=== PATIENT | male | born 1935 | race Caucasian/White ===

== ENCOUNTER 2016-07-09 18:03 | Inpatient (IN) | payer MEDICARE, OTHER ==
[~2016-07-09] VITALS: Ht 185.4 cm; Wt 71.6 kg
[~2016-07-09 18:03] MED LIST: ATOR40TA69 PO; CHOL200025 PO; FLUT16SP NASAL; IPRA3AMP NEB; IPRA4AER INHALATION; LEVO500T79 PO; LEVO750T39 PO; LISI-610 PO; MULT1CAP33 PO; NORT25CA PO; POLY17PO2 PO; PRED-508 PO; WARF5TAB7 PO
[2016-07-09 18:14] VITALS: BP 136/82; RESP 16; O2SAT 95
--- NOTE | 2016-07-09 19:35 | DRSVH ---
PROCEDURE: X-RAY CHEST, TWO VIEWS ([id number]) INDICATIONS: persistent cough TECHNIQUE: 2 views of the chest were acquired. COMPARISON: [facility], CR, XR CHEST 2VW, 08/01/2015, 8:57. FINDINGS: Surgical changes and devices: Surgical clips are projected over the left upper quadrant. Lungs and pleura: There is elevation of the right hemidiaphragm, unchanged from the study dated . As before, there is likely atelectasis at the right lung base. No acute airspace opacities. Mediastinum: Mediastinal contours are normal. Heart size is enlarged, as before. The aortic arch is calcified. Bones and chest wall: No suspicious bony abnormalities. Soft tissues appear unremarkable. IMPRESSION: 1. Unchanged elevation of the right hemidiaphragm with probable right basilar atelectasis. 2. Stable cardiomegaly. 3. No definite acute airspace opacities; however this is a limited study given diaphragmatic elevatio n and cardiomegaly. Dictated by: Sadia Deleon M.D. on 07/09/2016 at 19:31 Approved by: Sadia Deleon M.D. on 07/09/2016 at 19:33
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
[2016-07-09] MEDS ORDERED: cefTRIAXone Inj 2,000 MG in Dextrose 5% Minibag Plus 50 ML IV ONE (20:15)
[2016-07-09 20:45] LABS: BASOPHILS % (AUTO) 0.2 % (0-3); EOSINOPHILS % (AUTO) 0.1 % (0-5); MONOCYTES % (AUTO) 15.5 % (4-12); Mean Corpuscular Hemoglobin 30.9 pg (27.0-35.0); Mean Corpuscular Volume 94.3 fL (81-100); NEUTROPHILS % (AUTO) 75.9 % (40-74); Platelet Count 195 bil/L (150-400)
[2016-07-09] MEDS ORDERED: Albuterol-Ipratropium 3 mL Inhalation Solution NEB ONE ×2 (21:00→21:35)
[2016-07-09] MEDS ORDERED: MethylprednisoLONE Sodium Succinate 62.5 mg/mL 2 mL Inj IVPUSH ONE (21:00)
[2016-07-09 21:49] LABS: INR 1.61 ratio
--- NOTE | 2016-07-09 22:08 | DRSVH ---
PROCEDURE: CT BRAIN WITHOUT CONTRAST ([id number]) INDICATIONS: headache, left ear pain, warfarin use TECHNIQUE: Noncontrast 4.5 mm thick angled axial sections acquired from the foramen magnum to the vertex, with c oronal reformats. COMPARISON: [facility], CT, BRAIN W/O CONTRAST, 06/15/2014, 12:03. FINDINGS: Image quality: Excellent. CSF spaces: Basal cisterns are patent. No extra-axial fluid collections. The ventricles are symmet corine in size and shape. Brain: No intracranial bleeds or masses. There is cerebral volume loss for age, with resultant vent ricular and sulcal prominence. There are periventricular and deep white matter chronic small vessel ischemic changes. A chronic appearing lacunar infarct is present within the right thalamus which is n ew when compared with the study dated 06/15/14. There is intracranial internal carotid artery atherosc lerosis. Skull and face: Calvarium and visualized facial bones appear intact, without suspicious lesions. Sinuses: Visualized sinuses and mastoids are clear. IMPRESSION: 1. No acute intracranial findings. 2. Chronic findings likely associated with microvascular ischemia and right thalamic lacunar infarct, new from 2014, but likely chronic in nature. Dictated by: Sadia Deleon M.D. on 07/09/2016 at 22:04 Approved by: Sadia Deleon M.D. on 07/09/2016 at 22:06
[2016-07-09 22:11] VITALS: PULSE 88; RESP 20; O2SAT 85
[2016-07-09] MEDS ORDERED: Ondansetron 2 mg/mL 2 mL Inj IVPUSH PRN (22:30)
[2016-07-09] MEDS ORDERED: Alum-Mag Hydrox-Simeth 30 mL Suspension PO PRN (22:30)
[2016-07-09] MEDS ORDERED: Polyethylene Glycol (PEG) 17 Gm Powder PO PRN (22:30)
[2016-07-09 23:05] VITALS: BP 133/68; PULSE 101; RESP 32; O2SAT 92
[2016-07-09] MEDS: Budesonide 0.5 mg/2 mL Inhalation Solution NEB SCH (23:10)
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
[2016-07-09 23:30] VITALS: BP 94/65; PULSE 103; RESP 24; O2SAT 91
[2016-07-09 23:34] VITALS: PULSE 102
[2016-07-09 23:48] VITALS: BP 94/65; PULSE 102; RESP 24; O2SAT 91
[2016-07-10] VITALS (10 sets, daily range): BP systolic 120–130; BP diastolic 62–80; PULSE 61–104; RESP 16–24; O2SAT 89–97
[2016-07-10] MEDS ORDERED: 0.9% Sodium Chloride 1,000 ML IV ONE
--- NOTE | 2016-07-10 00:04 | NUR ---
Admit Pt to floor at 2320. Alert and oriented. Ambulated from stretcher to bathroom and then to bed. Urine sent. Sats are 95% on 2 liters. He states he is on 2 liters of oxygen at home. Denies pain and states he is comfortable. States he received flu shot this season. Can't remember names of meds other than Coumadin. States he fills these at [facility] - will check with them in the morning. Discussed plan of care. No questions for me at this time.
[2016-07-10] MEDS ORDERED: Piper-Tazo 3.375 Gm/50 mL D5W Minibag Plus - Q8H over 4 hrs IV ONE ×2 (00:30)
[2016-07-10] MEDS ORDERED: Heparin 5,000 Unit/mL Inj SUBQ SCH (00:30)
[2016-07-10] MEDS ORDERED: Linezolid Inj 600 MG in IV Premix 1 EACH IV SCH (00:30)
[2016-07-10] MEDS: 0.9% Sodium Chloride 1,000 ML IV SCH ×3 (00:32→20:19)
[2016-07-10 01:26] LABS: APPEARANCE,URINE CLEAR (CLEAR,HAZY); COLOR,URINE YELLOW (YELLOW); OCCULT BLOOD,URINE TRACE (NEGATIVE); PH,URINE 5.5 (5.0-8.0); UROBILINOGEN,URINE NORMAL (NORMAL)
[2016-07-10] MEDS: Albuterol-Ipratropium 3 mL Inhalation Solution NEB SCH ×4 (01:52→21:04)
--- NOTE | 2016-07-10 03:40 | PCM.CONPHA ---
Subjective Date of Service: Jul 09, 2016 Requesting Provider: EIM YOUNG DO Left Ear pain Shortness of breath History of Present Illness hx of DVT/PE Reason for Pharmacy Consult: Anticoagulation Management Objective Vital Signs Date Time Temp Pulse Resp B/P Pulse Ox O2 Delivery O2 Flow Rate FiO2 07/10/16 01:52 95 20 92 Nasal Cannula 1.00 07/10/16 00:07 Supplement Oxygen 07/09/16 23:48 36.7 102 24 94/65 91 Nasal Cannula 2.00 07/09/16 23:34 102 07/09/16 23:30 36.7 103 24 94/65 91 Nasal Cannula 2.00 07/09/16 23:05 38.0 101 32 133/68 92 Nasal Cannula 2 07/09/16 22:11 88 20 85 Room Air 07/09/16 18:14 37.4 93 16 136/82 95 Room Air Weight (Kilograms): 71.100 Height (Feet): 6 Height (Inches): 1.00 Test 07/09/16 20:32 07/09/16 23:38 White Blood Count 9.2th/mm3 (3.8-10.1) Red Blood Count 4.21mil/mm3 (4.40-5.80) Hemoglobin 13.0g/dL (13.8-17.2) Hematocrit 39.7% (41.0-50.0) Mean Corpuscular Volume 94.3fL (81-100) Mean Corpuscular Hemoglobin 30.9pg (27.0-35.0) Mean Corpuscular Hemoglobin Concent 32.7% (32.0-37.0) Red Cell Distribution Width 14.2% (12.3-15.4) Platelet Count 195bil/L (150-400) Neutrophils (%) (Auto) 75.9% (40-74) Lymphocytes (%) (Auto) 8.1% (14-46) Monocytes (%) (Auto) 15.5% (4-12) Eosinophils (%) (Auto) 0.1% (0-5) Basophils (%) (Auto) 0.2% (0-3) Prothrombin Time 17.4sec (8.1-12.5) Prothromb Time International Ratio 1.61ratio Sodium Level 135mEq/L (134-144) Potassium Level 4.7mEq/L (3.5-5.2) Chloride Level 95mEq/L (97-108) Carbon Dioxide Level 25mmol/L (18-29) Blood Urea Nitrogen 30mg/dL (8-27) Creatinine 1.38mg/dL (0.76-1.27) Estimat Glomerular Filtration Rate 53mL/min (>59) Glucose Level 105mg/dL (60-99) Lactic Acid Level 1.1mmol/L (0.4-2.0) Calcium Level 9.0mg/dL (8.5-10.1) Total Bilirubin 0.4mg/dL (0.0-1.2) Aspartate Amino Transf (AST/SGOT) 47U/L (0-50) Alanine Aminotransferase (ALT/SGPT) 30U/L (0-44) Alkaline Phosphatase 64U/L (25-160) Total Protein 7.1g/dL (6.4-8.4) Albumin 4.0g/dL (3.4-5.0) Procalcitonin 0.26ng/mL (0.00-0.08) Urine Color Yellow (YELLOW) Urine Appearance Clear (CLEAR,HAZY) Urine pH 5.5 (5.0-8.0) Urine Specific [place] 1.030 (1.003-1.035) Urine Protein 30mg/dL (NEG,TRACE) Urine Glucose (UA) Negativemg/dL (NEGATIVE) Urine Ketones 15mg/dL (NEGATIVE) Urine Occult Blood Trace (NEGATIVE) Urine Nitrite Negative (NEGATIVE) Urine Bilirubin Negative (NEGATIVE) Urine Urobilinogen Normalmg/dL (NORMAL) Urine Leukocyte Esterase Negative (NEGATIVE) Urine RBC 3-10/hpf (0-2) Urine WBC 0-5/hpf (0-5) Urine Epithelial Cells Occasional/hpf (NONE-MOD) Urine Crystals None seen (NONE SEEN) Urine Bacteria None/hpf (NONE-FEW) Urine Hyaline Casts None/lpf (NONE) Urine Granular Casts None seen (NONE SEEN) Urine Waxy Casts None seen (NONE SEEN) Urine Red Blood Cell Casts None seen (NONE SEEN) Urine White Blood Cell Casts None seen (NONE SEEN) Urine Mucus None seen (None Seen) Urine Trichomonas None seen (NONE SEEN) Urine Yeast None (NONE SEEN) Urinalysis Comment Urine Culture Reflexed Not indicated Hold Urine Received (Received) Assessment/Plan Assessment/Plan A/ - 81 y/o male patient required to be continued on warfarin for hx of DVT/PE - Home dose: Warfarin 5mg, last taken 07/08 - INR (@admission) 1.61 - HCt/Plt: 39.7/195 - No sign/symptoms of bleeding/bruising - Tamiflu and Rocephin p/ - Give home dose warfarin 5mg tonight and reassess daily. INR ordered next 3 days Pharmacy will continue to follow Thank you for consulting clinical pharmacy in the care of this patient Cyrus Sanchez, PharmD, [facility] Kenyon Sanchez Jul 10, 2016 03:40
[2016-07-10 03:55] LABS: BASOPHILS % (AUTO) 0.2 % (0-3); EOSINOPHILS % (AUTO) 0 % (0-5); MONOCYTES % (AUTO) 4.8 % (4-12); Mean Corpuscular Hemoglobin 31.2 pg (27.0-35.0); Mean Corpuscular Volume 93.6 fL (81-100); NEUTROPHILS % (AUTO) 92.6 % (40-74); Platelet Count 223 bil/L (150-400)
[2016-07-10 04:08] LABS: INR 1.77 ratio
--- NOTE | 2016-07-10 05:28 | NUR ---
Sats Sats continue to remain around 92-93% on 2 liters nasal cannula. Tele continues with rate in low 100's with PACs. Has been dozing on and off throughout the night.
[2016-07-10] MEDS ORDERED: 0.9% Sodium Chloride 500 ML IV ONE (05:55)
[2016-07-10] MEDS: Budesonide 0.5 mg/2 mL Inhalation Solution NEB SCH ×2 (08:17→21:04)
[2016-07-10] MEDS: predniSONE 20 mg Tablet PO SCH (09:25)
[2016-07-10] MEDS ORDERED: Piper-Tazo 3.375 Gm/50 mL D5W Minibag Plus - Q8H over 4 hrs IV SCH ×2 (12:00)
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
--- NOTE | 2016-07-10 16:34 | NUR ---
spiritual care: routine pt shared about recent stresses including clearing out housing and cleaning extensively. Pt articulate about his situation and appreciated the chance to express his anxieties as they relate to his medical condition. Pt baptist and glad for support from eucharistic team.
--- NOTE | 2016-07-10 17:21 | DRSVH ---
PROCEDURE: X-RAY CHEST, TWO VIEWS ([id number]) INDICATIONS: SHORT OF BREATH TECHNIQUE: 2 views of the chest were acquired. COMPARISON: [facility], CR, ABD ACUTE SERIES, 08/03/2010, 9:52. [facility], CR, XR CHEST 1VW (PORTABLE), 07/01/2015, 15:35. [facility], CR, XR CHEST 2VW, 07/09/2016, 19:00. FINDINGS: Surgical changes and devices: Surgical clips are projected over the left upper quadrant. Lungs and pleura: There is elevation of the right hemidiaphragm, unchanged from the study dated . As before, there is likely atelectasis at the right lung base. No acute airspace opacities. Mediastinum: Mediastinal contours are normal. Heart size is enlarged, as before. The aortic arch is calcified. Bones and chest wall: No suspicious bony abnormalities. Soft tissues appear unremarkable. IMPRESSION: 1. Chronic elevation of the right hemidiaphragm with probable basilar atelectasis but superimposed pn eumonia cannot be excluded. Correlate clinically. 2. Cardiomegaly unchanged. Dictated by: Geovanni HEALY Interpreted: Nolan Hong MD on 07/10/2016 at 17:17 Transcribed by: TONY on 07/10/2016 at 17:19 Approved by: Nolan Hong M.D. on 07/12/2016 at 10:09
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
--- NOTE | 2016-07-10 18:39 | ABG ---
DateTimeAnalyzed 18:35:00 -_ pH ____7.438 - 7.350 7.450 pCO2 ___39.6__ -mmHg 35.0 45.0 pO2 ___62.0__ -mmHg 69.0 116 HCO3- ___26.3__ -mmol/L 22.0 26.0 ABE ____2.5__ -mmol/L -2.0 2.0 tHb ___12.3__ -g/dL O2Hb ___90.7__ -% COHb ____1.0__ -% MetHb ____1.0__ -% sO2 ___92.5__ -% 25.0 FIO2 ___24.0__ -% Drawn By jmw - Date/Time Notified____ 18:38:00 -_ Liter_Flow ____1.0__ -L/min Oxygen Device 1 __CANNULA - Notified By JMW - Notified Whom DR GREEN - B 749 -mmHg tO2 ___15.7__ -Vol% Gibran test _Positive -
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
[2016-07-10] MEDS: cefTRIAXone Inj 1,000 MG in Dextrose 5% Minibag Plus 50 ML IV SCH (20:17)
[2016-07-11] VITALS (10 sets, daily range): BP systolic 143–157; BP diastolic 72–91; PULSE 87–108; RESP 18–24; O2SAT 93–98
[2016-07-11] MEDS: Albuterol-Ipratropium 3 mL Inhalation Solution NEB SCH ×5 (02:38→23:25)
[2016-07-11 04:01] LABS: BASOPHILS % (AUTO) 0.1 % (0-3); EOSINOPHILS % (AUTO) 0 % (0-5); MONOCYTES % (AUTO) 8.7 % (4-12); Mean Corpuscular Hemoglobin 30.5 pg (27.0-35.0); Mean Corpuscular Volume 94.9 fL (81-100); NEUTROPHILS % (AUTO) 86.2 % (40-74); Platelet Count 194 bil/L (150-400)
[2016-07-11 04:12] LABS: INR 3.5 ratio
[2016-07-11 04:45] LABS: Magnesium 1.9 mg/dL (1.6-2.6)
[2016-07-11] MEDS: 0.9% Sodium Chloride 1,000 ML IV SCH (06:26)
--- NOTE | 2016-07-11 06:52 | NUR ---
Respiratory Pt on 1-2L NC throughout night, sats mid to high 90s but when titrated below 1L pt desat to mid 80s. Pt had no c/o SOB and woke this morning seeming in good spirits to get out of bed for his standing weight, per FORMING DEPARTMENT END FINDER he walked in the room for a little while and tolerated this well. Tele SR 80s-100s most of night, no c/o pain.
[2016-07-11] MEDS: Budesonide 0.5 mg/2 mL Inhalation Solution NEB SCH ×2 (07:28→23:25)
[2016-07-11] MEDS: cefTRIAXone Inj 1,000 MG in Dextrose 5% Minibag Plus 50 ML IV SCH (10:50)
[2016-07-11] MEDS: predniSONE 20 mg Tablet PO SCH (10:50)
--- NOTE | 2016-07-11 15:02 | NUR ---
Evaluation completed. Please go to "Notes" then click on "Assessments and Notes" (bottom left corner of screen). Then select appropriate discipline tab on top of screen.
--- NOTE | 2016-07-11 18:30 | NUR ---
/Respiratory No reports of chest pain/pressure/discomfort. Tele SR/tach 90s to 100sprior to DC of tele, HR still 90s to low 100s. No reports of SOB, spo2 on 1L NC 95%. No reports of n/v/d/c or abdominal pain. Voiding dark yellow urine viaurinal, per patient "it does burn a little bit coming out". Patient had mall amount of theron blood in BSC after void and BM, no evidence of hemorrhoids-- new UA ordered. Worked with PT this afternoon -- see note. RN notes unsteady gait when up to BSC-- patient reports increase in strength but too states he feels unsteady on feet.
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
[2016-07-11 22:19] LABS: APPEARANCE,URINE CLEAR (CLEAR,HAZY); COLOR,URINE YELLOW (YELLOW); OCCULT BLOOD,URINE MODERATE (NEGATIVE); UROBILINOGEN,URINE NORMAL (NORMAL)
[2016-07-12] VITALS (8 sets, daily range): BP systolic 140–149; BP diastolic 73–86; PULSE 88–115; RESP 16–22; O2SAT 90–96
[2016-07-12 04:07] LABS: BASOPHILS % (AUTO) 0.1 % (0-3); EOSINOPHILS % (AUTO) 0 % (0-5); Mean Corpuscular Hemoglobin 30.8 pg (27.0-35.0); Mean Corpuscular Volume 94.4 fL (81-100); NEUTROPHILS % (AUTO) 84.3 % (40-74); Platelet Count 196 bil/L (150-400)
[2016-07-12 04:23] LABS: INR 4.38 ratio
--- NOTE | 2016-07-12 07:22 | NUR ---
O2/Activity/UA Pt on 0.5-1L NC w/out c/o SOB though lungs are course/moist. Pt encouraged to cough/deep breathe. Per SYNTHETIC PLASTERER pt stood w/ SBA and looked steady. UA sent per orders. Pt had no c/o pain, all VSS.
[2016-07-12] MEDS: Albuterol-Ipratropium 3 mL Inhalation Solution NEB SCH ×4 (08:35→22:31)
[2016-07-12] MEDS: Budesonide 0.5 mg/2 mL Inhalation Solution NEB SCH ×3 (08:35→22:31)
[2016-07-12] MEDS: predniSONE 20 mg Tablet PO SCH (09:11)
[2016-07-12] MEDS: cefTRIAXone Inj 1,000 MG in Dextrose 5% Minibag Plus 50 ML IV SCH (09:12)
[2016-07-12] MEDS ORDERED: Phytonadione (Adult) 10 mg/1 mL Inj PO ONE (12:15)
--- NOTE | 2016-07-12 12:15 | NUR ---
Social Work: Readiness for Discharge D: Pt discussed with MD, pt likely not stable for discharge home today due to INR levels. Anticipate likely discharge home tomorrow. Pt was able to ambulate 100-150 feet with PT today and is recommended for home health PT. EMPLOYMENT ADJUDICATOR met with pt at bedside to discuss discharge planning. HH CHOICE LIST provided and reviewed. Pt preference is for [facility]. He states he has no concerns about discharge home and states a friend will transport him when ready. requesting that company complete a CMP on pt, if possible, at initial intake. EMPLOYMENT ADJUDICATOR spoke with Aramis Phelps with [facility] to provide referral. He states that they can have an RN out to meet with pt on Saturday to do an INR check and do a CMP on the pt. updated. F2F completed- original in chart, copy to Sophia. A: Pt who is ambulating 100 feet SBA. P: Anticipate pt to discharge home with [facility] for RN and PT; pt's friend to transport via POV when ready. EMPLOYMENT ADJUDICATOR to continue to follow. BLANCA López
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
--- NOTE | 2016-07-12 16:03 | DRSVH ---
PROCEDURE: X-RAY CHEST ONE VIEW ([id number]) INDICATIONS: PNA. TECHNIQUE: One view of the chest was acquired. COMPARISON: [facility], CR, XR CHEST 2VW, 07/09/2016, 19:00. [facility], CR, XR CHEST 2VW, 08/01/2015, 8:57. [facility], CR, XR CHEST 2VW, 07/10/2016, 16:52. FINDINGS: Surgical changes and devices: Surgical clips are projected over the left upper quadrant. Lungs and pleura: There is elevation of the right hemidiaphragm, unchanged from the study dated . As before, there is likely atelectasis at the right lung base. No definite acute airspace opaciti es. Mediastinum: Mediastinal contours are normal. Heart size is enlarged, as before. The aortic arch is calcified. Bones and chest wall: No suspicious bony abnormalities. Soft tissues appear unremarkable. IMPRESSION: 1. Persistent elevation the right hemidiaphragm with right basilar opacity likely atelectasis but sup erimposed pneumonia cannot be excluded. 2. Chronic cardiomegaly. Dictated by: Geovanni Escamilla R[facility] Interpreted: Sandra Brown MD on 07/12/2016 at 16:02 Transcribed by: ISAC on 07/12/2016 at 16:03 Approved by: Sandra Brown M.D. on 07/12/2016 at 16:19
--- NOTE | 2016-07-12 19:01 | NUR ---
Respiratory No reports of chest pain/pressure/discomfort, no tele, HR 80s-90s. No reports of SOB/dizziness. SPO2 on 0.5L NC 94%. Per physical therapy patient SPO2 on 1LNC while ambulating and talking dropped to low-mid 80s. No reports of n/v/d/c or abdominal pain. Bowel tones normal, patient continues to report "a little" burning with urination but reports it has improved from yesterday -- UA not indicated for culture.
[2016-07-13] VITALS: BP 149/79; PULSE 86; RESP 28; O2SAT 96
[2016-07-13 04:21] VITALS: BP 188/94; PULSE 82; RESP 20; O2SAT 94
[2016-07-13 05:20] LABS: BASOPHILS % (AUTO) 0.5 % (0-3); EOSINOPHILS % (AUTO) 0 % (0-5); MONOCYTES % (AUTO) 12.6 % (4-12); Mean Corpuscular Hemoglobin 30.8 pg (27.0-35.0); Mean Corpuscular Volume 93.3 fL (81-100); NEUTROPHILS % (AUTO) 73.1 % (40-74); Platelet Count 208 bil/L (150-400)
--- NOTE | 2016-07-13 05:20 | NUR ---
NOC PT has slept most of the night. Denies any pain. HE reports he is feeling better and was able to ambulate around room multiple times yesterday. HIs lungs have crackles and mild rhonchi t/o. He remains on 2l NC and is in range. SCD's on BLE. He voids per urinal adequate amounts of light ayan urine. No pain. No fever over noc. NEbs as scheduled. Will CTM.
[2016-07-13 05:39] LABS: INR 1.64 ratio
[2016-07-13] MEDS: Albuterol-Ipratropium 3 mL Inhalation Solution NEB SCH (07:50)
[2016-07-13] MEDS: Budesonide 0.5 mg/2 mL Inhalation Solution NEB SCH (07:51)
[2016-07-13 07:53] VITALS: PULSE 89; RESP 18; O2SAT 95
[2016-07-13] MEDS ORDERED: 0.9% Sodium Chloride 250 ML ONE (08:53)
[2016-07-13 08:57] VITALS: BP 149/83; PULSE 89; RESP 18; O2SAT 89
[2016-07-13] MEDS: predniSONE 20 mg Tablet PO SCH (09:12)
[2016-07-13] MEDS: cefTRIAXone Inj 1,000 MG in Dextrose 5% Minibag Plus 50 ML IV SCH (09:16)
[2016-07-13] MEDS ORDERED: ZIT250 PO (11:29)
[2016-07-13] MEDS ORDERED: PRED-508 PO (11:29)
[2016-07-13] MEDS ORDERED: OSLT75C PO (11:29)
[2016-07-13] MEDS ORDERED: WARF2.5T PO (11:29)
[2016-07-13 12:11] VITALS: BP 132/91; PULSE 96; RESP 20; O2SAT 94
--- NOTE | 2016-07-13 12:22 | PCM.DIMED ---
Mirza Iverson DO 07/13/16 1137: Discharge Instructions Date of Service Jul 13, 2016 Dates of Hospitalization Jul 09, 2016 at 22:59 Discharge Diagnosis Discharge Diagnosis 1. Suspected CAP 2. Acute supratherapeutic INR. 3. Acute mild transaminitis, 4. Acute on chronic COPD exacerbation, 5. Influenza A + 6. AMARA 7 acute lactic acid elevation 8. Acute Hypoxic respiratory distress Chronic conditions Chronic anticoagulation for history if DVT/pulmonary embolus Depression/anxiety Hyperlipidemia Medication Instructions Azithromycin 2.5 mg by mouth, take 1 pill every day for the next 2 days. Tamiflu 7.5 mg by mouth, take 1 pill tonight, then 1 pill in the morning and evening until you are done with the prescription. Prednisone 40 mg by mouth, take 1 pill tomorrow morning. Warfarin 2.5 mg, take every day. Diet Heart Healthy Activity Home Health Phyical Therapy Call your provider Fever or Chills, Shortness of breath, Bleeding, Chest pain, Vomitting, Excessive diarrhea, Weakness (unilateral) Patient Instructions You are being discharged home in the care of [facility]. You will need to have your INR checked and a complete metabolic panel performed which can be done at your home health visits. Please begin wearing your oxygen while you are walking or being out and about. Continue to use your oxygen at night. Recommend you or your oxygen all the time. Increase to 3 L if you are increasing her activity such as walking. Please take medications as prescribed listed above. Please follow-up with Dr. Salas within 1 week Home health services are requested and authorized to perform physical therapy and rehabilitation. Follow-up Provider: Tony Salas DO Follow-up with PCP in: 1 week Malcom Muñoz MD 07/13/16 6211: Discharge Instructions Attending's Statement The patient was seen and examined together with Dr. Iverson on 07/13/2016 and I agree with the history, exam and plan as outlined in the note above. . Mirza Iverson DO Jul 13, 2016 11:37 Malcom Muñoz MD Jul 13, 2016 18:51
--- NOTE | 2016-07-13 14:19 | NUR ---
spiritual care: follow up conversational visit. pt reflected on recent stresses and his coping. largely through friendships and helping others. pt agreeable for eucharistic visitors.
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
--- NOTE | 2016-07-13 14:51 | NUR ---
Social Work: Discharge D: Pt discussed in am rounds. Pt's INR is stable and is ready for d/c. [employer]OW MACHINE TENDER met with pt at bedside to confirm d/c plan and reassess. Pt agrees with plan to go home with Sophia RUDD for RN, PT. WILLOW MACHINE TENDER confirmed with Aramis Lopez that they can see the pt on Saturday and do the CMP blood draw. F2F completed- he will come pick today. Pt states his friend will transport him home. EMR reviewed; no further needs reviewed. A: Pt who lives at home, alone. P: Anticipate pt to discharge home today via POV with Sophia RUDD for RN, PT. Rola Green, [employer] MACHINE TENDER
--- NOTE | 2016-07-13 16:26 | NUR ---
Discharge Pt. was discharged to home and left room 2030 at about 1400. Pt. took all his belongings with him and was given educational material on prescribed medications. Pt. was also instructed to follow up with Dr. Salas within 1 week and was told that his INR will be checked and a complete metabolic panel performed by his home health visits. Pt. stated he understood.
== END 2016-07-13 14:00 | disposition home health service (06) | DRG 190 ==
LOC: SED 18:03 → PCC 22:59
PROVIDERS: ADMIT Internal Medicine; ATTEND Internal Medicine
PROC: 4A033B1 Measurement of Arterial Pressure, Peripheral, Percutaneous Approach (ICD-10-PCS; principal; 2016-07-10)
DX: J44.1 Chronic obstructive pulmonary disease with (acute) exacerbation (principal); J18.9 Pneumonia, unspecified organism; J96.21 Acute and chronic respiratory failure with hypoxia; N17.9 Acute kidney failure, unspecified; Z79.51 Long term (current) use of inhaled steroids; M51.35 Other intervertebral disc degeneration, thoracolumbar region; I10 Essential (primary) hypertension; E78.5 Hyperlipidemia, unspecified; G43.909 Migraine, unspecified, not intractable, without status migrainosus; J32.8 Other chronic sinusitis; Z86.718 Personal history of other venous thrombosis and embolism; Z79.01 Long term (current) use of anticoagulants; Z86.73 Personal history of transient ischemic attack (TIA), and cerebral infarction without residual deficits; Z87.891 Personal history of nicotine dependence; Z99.81 Dependence on supplemental oxygen; Z90.2 Acquired absence of lung [part of]